=== PATIENT | female | born 1965 ===

== ENCOUNTER 2017-07-21 20:31 | Emergency (ER) | payer OTHER ==
[2017-07-21] MEDS ORDERED: Promethazine/Cod 6.25mg-10mg/5ml Syr UD PO STA (21:06)
--- NOTE | 2017-07-21 21:15 | ED PDOC ---
HPI: CCC, URI, Sore Throat Time Seen by Provider: 07/21/17 20:46 Chief Complaint (Nursing): Cough, Cold, Congestion Chief Complaint (Provider): Cough and Bilateral Chest Pain History Per: Patient History/Exam Limitations: no limitations Have you had recent travel within the past 21 days to any of the following countries: [place], [place], [place] or [place]?: No Onset/Duration Of Symptoms: Days (x7) Current Symptoms Are (Timing): Still Present Location Of Pain: None Sick Contacts (Context): None Associated Symptoms: Cough, Sputum (yellow then green). denies: Fever Ear Symptoms: Bilateral: None Additional Complaint(s): 52 year old female presents to the ED complaining of a progressively worsening cough and bilateral chest pain. The patient reports that initially her cough was productive of yellow sputum they eventually changed to green. She states that she has been using over the counter cough and cold medication which have offered her no relief. Denies hemoptysis, recent travel, sick contacts. PMD: [facility] Past Medical History Reviewed: Historical Data, Nursing Documentation, Vital Signs Vital Signs: Last Vital Signs Temp 98.8 F 07/22/17 00:04 Pulse 78 07/22/17 00:04 Resp 15 07/22/17 00:04 BP 153/91 H 07/22/17 00:04 Pulse Ox 96 07/22/17 00:04 - Medical History PMH: Anxiety, CHF, HTN Denies: Asthma, Chronic Kidney Disease - Surgical History Surgical History: Tonsillectomy - Family History Family History: States: Diabetes Denies: CAD, Hypertension - Immunization History Hx Tetanus Toxoid Vaccination: No Hx Influenza Vaccination: No Hx Pneumococcal Vaccination: No - Home Medications Home Medications: Ambulatory Orders Medication Instructions Recorded Albuterol 0.083% [Albuterol 0.083% 3 ml IH Q6H PRN #30 neb 08/16/15 Inhal Maggie (2.5 mg/3 ml) UD] Nebulizer [Compact Compressor 1 dev XX PRN PRN #1 dev 08/16/15 Nebulizer] Atorvastatin [Lipitor] 20 mg PO DAILY tab 07/18/16 Carvedilol [Coreg] 6.25 mg PO Q12H tab 07/18/16 Furosemide [Lasix] 40 mg PO DAILY tab 07/18/16 Gabapentin [Neurontin] 300 mg PO TID cap 07/18/16 Ibuprofen [Motrin Tab] 600 mg PO Q6 PRN #14 tab 07/18/16 Losartan [Cozaar] 50 mg PO DAILY tab 07/18/16 Spironolactone [Aldactone] 25 mg PO DAILY tab 07/18/16 busPIRone [Buspar] 15 mg PO TID tab 07/18/16 traMADol [Ultram] 50 mg PO Q6 PRN #14 tab 07/18/16 Acetaminophen [Tylenol 325mg tab] 975 mg PO Q4 PRN #30 tab 07/22/17 Albuterol HFA [Ventolin HFA 90 2 puff IH [id number] PRN #90 puff 07/22/17 mcg/actuation (8 g)] Azithromycin [Zithromax] 250 mg PO DAILY #6 tab 07/22/17 Benzonatate [Tessalon Perle] 100 mg PO Q8 PRN #30 capsule 07/22/17 Erythromycin 0.5% [Erythromycin 3.5 gm EACHEYE QID #3 tube 07/22/17 0.5% Oint] - Allergies Allergies/Adverse Reactions: Allergies Allergy/AdvReac Type Severity Reaction Status Date / Time sulfamethoxazole Allergy ANAPHYLAXIS Verified 07/18/16 01:20 Review of Systems Constitutional: Negative for: Fever Cardiovascular: Positive for: Chest Pain (b/l) Respiratory: Positive for: Cough (productive of green sputum). Negative for: Hemoptysis Physical Exam - Reviewed Nursing Documentation Reviewed: Yes Vital Signs Reviewed: Yes - Physical Exam Appears: Positive for: Non-toxic, No Acute Distress Head Exam: Positive for: ATRAUMATIC, NORMAL INSPECTION, NORMOCEPHALIC Skin: Positive for: Normal Color, Warm, Dry. Negative for: Rash Eye Exam: Positive for: Normal appearance, EOMI, PERRL, Conjunctival injection ( b/l injection with white/yellow discharge noted). Negative for: Periorbital swelling, Periorbital tenderness ENT: Positive for: Normal ENT Inspection. Negative for: Nasal Congestion, Tonsillar Exudate, Tonsillar Swelling Cardiovascular/Chest: Positive for: Regular Rate, Rhythm, Chest Non Tender. Negative for: Tachycardia Respiratory: Positive for: Normal Breath Sounds (Patient is actively coughing). Negative for: Wheezing, Respiratory Distress Gastrointestinal/Abdominal: Positive for: Normal Exam, Bowel Sounds, Soft. Negative for: Tenderness, Guarding, Rebound Back: Positive for: Normal Inspection. Negative for: L CVA Tenderness, R CVA Tenderness Extremity: Positive for: Normal ROM. Negative for: Tenderness, Calf Tenderness , Deformity, Swelling Neurologic/Psych: Positive for: Alert, Oriented, Gait - Laboratory Results Result Diagrams: 07/21/17 21:40 07/21/17 21:40 - ECG ECG: Positive for: Interpreted By Me ECG Rhythm: Positive for: Sinus Tachycardia. Negative for: ST/T Changes Rate: 100 O2 Sat by Pulse Oximetry: 98 (RA) Pulse Ox Interpretation: Normal - Radiology X-Ray: Interpreted by Me (CXR) X-Ray Interpretation: No Acute Disease - Progress ED Course And Treament: CTA chest w/ IV contrast: nothing acute Re-evaluation Time: 00:00 Condition: Re-examined, Improving,but remains with symptoms Medical Decision Making Medical Decision Makin Initial Impression 52 y/o female presenting with cough Initial Plan: * VBG * CT Angio Chest PE Protocol * EKG * B-type * Natriuretic * CMP * Troponin * CBC * D-Dimer * CXR (PA&LAT) * Phernegan/Codeine oral syrup * Reevaluation Documented by Aleshia Kim acting as a scribe for Gurvinder De La Cruz PA-C. All medical record entries made by the Scribe were at my direction and personally dictated by me. I have reviewed the chart and agree that the record accurately reflects my personal performance of the history, physical exam, medical decision making, and the department course for this patient. I have also personally directed, reviewed, and agree with the discharge instructions and disposition. Disposition - Clinical Impression Clinical Impression: Acute bronchitis, Conjunctivitis - Patient ED Disposition Is Patient to be Admitted: No - Disposition Referrals: [facility] [Outside] Disposition: Routine/Home Disposition Time: 00:01 Condition: STABLE Prescriptions: Albuterol HFA [Ventolin HFA 90 mcg/actuation (8 g)] 2 puff IH [id number] PRN #90 puff PRN Reason: Cough Acetaminophen [Tylenol 325mg tab] 975 mg PO Q4 PRN #30 tab PRN Reason: fever or pain Azithromycin [Zithromax] 250 mg PO DAILY #6 tab Benzonatate [Tessalon Perle] 100 mg PO Q8 PRN #30 capsule PRN Reason: Cough Erythromycin 0.5% [Erythromycin 0.5% Oint] 3.5 gm EACHEYE QID #3 tube Instructions: Acute Bronchitis (ED), Conjunctivitis (ED) Forms: [employer] (Sinhala) Print Language: IRISH
[2017-07-21] MEDS ORDERED: Promethazine/Cod 6.25mg-10mg/5ml Syr UD ONE (21:25)
[2017-07-21 21:57] LABS: BASO # 0.1 K/uL (0.0-0.2); BASO % 0.8 % (0.0-2.0); EOS # 0.2 K/uL (0.0-0.7); EOS % 1.7 % (0.0-4.0); HEMOGLOBIN 13.5 g/dL (12.0-16.0); LYMPH # 2.2 K/uL (1.0-4.3); LYMPH % 21.4 % (20.0-40.0); MEAN CELL VOLUME 85.7 fl (81.0-99.0); MEAN CORPUSCULAR HEMOGLOBIN 28.4 pg (27.0-31.0); MEAN CORPUSCULAR HGB CONC 33.1 g/dL (33.0-37.0); MEAN PLATELET VOLUME 8.2 fl (7.2-11.7); MONO % 9.9 % (0.0-10.0); NEUT # 6.8 K/uL (1.8-7.0); NEUT % 66.2 % (50.0-75.0); NRBC % 0.1 % (0.0-0.0); RBC 4.76 Mil/uL (3.80-5.20); RED CELL DISTRIBUTION WIDTH 13.8 % (11.5-14.5); WHITE BLOOD COUNT 10.2 K/uL (4.8-10.8)
[2017-07-21 22:07] LABS: VENOUS BLOOD GAS BASE EXCESS 2.6 mmol/L (0.0-2.0); VENOUS BLOOD GAS PCO2 41 mmHg (40-60); VENOUS BLOOD GAS PO2 43 mm/Hg (30-55); VENOUS BLOOD PH 7.43 (7.32-7.43)
[2017-07-21 22:20] LABS: B-TYPE NATRIURETIC PEPTIDE 91.9 pg/ml (0-900)
[2017-07-21 22:21] LABS: ALB/GLOB RATIO 1.1 (1.0-2.1); ALT/SGPT 44 U/L (9-52); AST/SGOT 27 U/L (14-36); BLOOD UREA NITROGEN 13 mg/dl (7-17); CALCIUM 9.6 mg/dL (8.4-10.2); GFR AFRICAN-AMERICAN > 60; GFR NON-AFRICAN AMERICAN > 60
[2017-07-21] MEDS ORDERED: Iodixanol 320 MG/ML 100 ML BOTTLE IV ONE (22:32)
[2017-07-22 00:05] VITALS: BP 153/91; RESP 15; TEMP 98.8
[2017-07-22 00:08] VITALS: PULSE 100; O2SAT 98
--- NOTE | 2017-07-22 08:59 | RAD ---
HISTORY: cough COMPARISON: No prior. TECHNIQUE: Chest PA and lateral FINDINGS: LUNGS: No focal consolidation. Increased/ coarsened interstitial markings ; rule out sequela of reactive/ inflammatory airway disease or viral illness. PLEURA: No significant pleural effusion identified. No pneumothorax apparent. CARDIOVASCULAR: Normal. OSSEOUS STRUCTURES: No significant abnormalities. VISUALIZED UPPER ABDOMEN: Normal. OTHER FINDINGS: None. IMPRESSION: No focal consolidation. Increased/ coarsened interstitial markings ; rule out sequela of reactive/ inflammatory airway disease or viral illness.
--- NOTE | 2017-07-22 10:24 | CT ---
PROCEDURE: CTA of the chest dated 07/21/2017. HISTORY: Bilateral chest pain, SOB COMPARISON: No prior study available comparison however correlation made with CT scan abdomen pelvis 03/14/2017 which imaged both lung bases. TECHNIQUE: Axial computed tomography images were obtained of the chest in the pulmonary arterial phase of enhancement. Coronal and sagittal reformatted images were created and reviewed. Intravenous contrast dose: 99 cc Visipaque 320 contrast Radiation dose: Total exam DLP = 361.33 mGy-cm. This CT exam was performed using one or more of the following dose reduction techniques: Automated exposure control, adjustment of the mA and/or kV according to patient size, and/or use of iterative reconstruction technique. FINDINGS: PULMONARY ARTERIES: Unremarkable. No pulmonary embolism. Pulmonary trunk measures approximately 2.75 cm. AORTA: No acute findings. No thoracic aortic aneurysm. Ascending thoracic aorta measures approximately 3.64 cm and descending thoracic aorta measures approximately 2.36 cm. LUNGS: Linear/nodular atelectasis and or scarring changes again seen in the middle lobe and lingular regions. Lung gore are otherwise clear. Small hiatal hernia with wall thickening of the distal esophagus likely due to protrusion gastric mucosa. Possibility of esophagitis or other intrinsic/invasive wall lesion not excluded. PLEURAL SPACES: Unremarkable. No effusion or pneumothorax. HEART: Heart appears mildly enlarged. No significant pericardial effusion. LYMPH NODES: Few small nonspecific mediastinal lymph nodes. No significant hilar adenopathy. BONES, CHEST WALL: Mild multilevel degenerative spondylosis of the thoracic spine. There are no compression fractures no retropulsed fragments. Vertebral bodies exhibit relatively normal stature. OTHER FINDINGS: Unremarkable. IMPRESSION: No evidence of acute central pulmonary embolus. Re- demonstrated are mild chronic linear/nodular atelectasis and or scarring changes middle lobe and lingular regions. Small hiatal hernia with wall thickening of the distal esophagus likely due to protrusion gastric mucosa. Possibility of esophagitis or other intrinsic/invasive wall lesion not excluded.
--- NOTE | 2017-07-22 12:22 | CARD ---
APPROVED REPORT EKG Measurement Heart [id number] <Conclusion> Normal sinus rhythm Nonspecific ST abnormality Abnormal ECG
== END 2017-07-22 00:09 | disposition home or self-care (01) ==
LOC: H.ER 20:31
DX: J20.9 Acute bronchitis, unspecified (principal); H10.9 Unspecified conjunctivitis; I50.9 Heart failure, unspecified; I10 Essential (primary) hypertension
CPT/HCPCS: 71046; 71275; 80053; 82803; 83880; 84484; 85025; 93005; 99284; Q9967

== ENCOUNTER 2018-02-14 10:33 | Emergency (ER) | payer MEDICAID, OTHER ==
[2018-02-14 10:37] VITALS: O2SAT 98
[2018-02-14 10:38] VITALS: BMI 32.4
[2018-02-14 12:06] LABS: BASO # 0.1 K/uL (0.0-0.2); BASO % 0.7 % (0.0-2.0); EOS # 0.2 K/uL (0.0-0.7); EOS % 3.1 % (0.0-4.0); HEMOGLOBIN 14.8 g/dL (12.0-16.0); LYMPH # 2.2 K/uL (1.0-4.3); LYMPH % 28.7 % (20.0-40.0); MEAN CELL VOLUME 86.7 fl (81.0-99.0); MEAN CORPUSCULAR HEMOGLOBIN 28.9 pg (27.0-31.0); MEAN CORPUSCULAR HGB CONC 33.3 g/dL (33.0-37.0); MEAN PLATELET VOLUME 8.6 fl (7.2-11.7); MONO # 0.7 K/uL (0.0-0.8); MONO % 8.9 % (0.0-10.0); NEUT # 4.4 K/uL (1.8-7.0); NEUT % 58.6 % (50.0-75.0); NRBC % 0.1 % (0.0-0.0); RBC 5.13 Mil/uL (3.80-5.20); RED CELL DISTRIBUTION WIDTH 13.7 % (11.5-14.5); WHITE BLOOD COUNT 7.6 K/uL (4.8-10.8)
[2018-02-14 12:14] LABS: PROTHROMBIN TIME 11.5 Seconds (9.8-13.1)
[2018-02-14 12:16] LABS: ALB/GLOB RATIO 1.3 (1.0-2.1); ALT/SGPT 29 U/L (9-52); AST/SGOT 24 U/L (14-36); BLOOD UREA NITROGEN 14 mg/dl (7-17); CALCIUM 9.2 mg/dL (8.4-10.2); GFR NON-AFRICAN AMERICAN > 60
[2018-02-14 12:17] LABS: PARTIAL THROMBOPLASTIN TIME 31.2 Seconds (25.6-37.1)
--- NOTE | 2018-02-14 12:24 | RAD ---
Date of service: 02/14/2018 PROCEDURE: Cervical Spine Radiographs. HISTORY: Pain. COMPARISON: None. FINDINGS: BONES: Note that the odontoid is partially obscured by overlying occiput the open-mouth projection although also partially seen in extended karimi view No acute displaced - compression fractures nor retropulsed fragments. . Vertebral bodies exhibit relatively normal stature. There is slight posterior subluxation C5 over C6. There is also mild straightening of the normal cervical lordosis. Vertebral bodies otherwise exhibit normal alignment. Facets normally aligned DISC SPACES: Multilevel degenerative spondylosis. Changes include mild disc space narrowing with anterior as well as posterior osteophyte formation most notably affecting the C5-C6 level. Hypertrophic uncovertebral facet joint changes are also present latter more significant than former. Bilateral foraminal stenosis noted at the C3-C4, C4-C5 left greater than right and C5-C6 the bilaterally left greater than right SOFT TISSUES: Normal. No prevertebral soft tissue swelling. OTHER FINDINGS: None. IMPRESSION: No acute fractures seen within limitation of the study . Multilevel degenerative spondylosis as described.
[2018-02-14 13:09] LABS: VENOUS BLOOD GAS BASE EXCESS 2.4 mmol/L (0.0-2.0); VENOUS BLOOD GAS PCO2 51 mmHg (40-60); VENOUS BLOOD GAS PO2 25 mm/Hg (30-55); VENOUS BLOOD PH 7.36 (7.32-7.43)
--- NOTE | 2018-02-14 14:29 | ED PDOC ---
Upper Extremity Pain/Injury Time Seen by Provider: 02/14/18 10:42 Chief Complaint (Nursing): Upper Extremity Problem/Injury Chief Complaint (Provider): Upper Extremity Problem/Injury History Per: Patient History/Exam Limitations: no limitations Onset/Duration Of Symptoms: Sudden Onset Additional Complaint(s): 52 years old female presents to the ED for evaluation of sudden onset of left sided neck pain radiates to left arm and left chest. Patient reports symptoms appeared while she was taking out trash and states that after onset she became sweaty and dizzy and had to lay down. She states pain persisted which made her come to the ED. Patient denies any shortness of breath, loss of consciousness, nausea, vomiting or experiencing symptoms in the past. PMD: Dr. Gentile Past Medical History Reviewed: Historical Data, Nursing Documentation, Vital Signs Vital Signs: Last Vital Signs Temp 98.8 F 02/14/18 10:36 Pulse 87 02/14/18 10:36 Resp 20 02/14/18 10:36 BP 145/90 02/14/18 10:36 Pulse Ox 98 02/14/18 10:36 - Medical History PMH: Anxiety, CHF, HTN Denies: Asthma, Chronic Kidney Disease - Surgical History Surgical History: Tonsillectomy - Family History Family History: States: Diabetes Denies: CAD, Hypertension - Social History Current smoker - smoking cessation education provided: No Alcohol: None Drugs: Denies - Immunization History Hx Tetanus Toxoid Vaccination: No Hx Influenza Vaccination: No Hx Pneumococcal Vaccination: No - Home Medications Home Medications: Ambulatory Orders Medication Instructions Recorded Albuterol 0.083% [Albuterol 0.083% 3 ml IH Q6H PRN #30 neb 08/16/15 Inhal Maggie (2.5 mg/3 ml) UD] Nebulizer [Compact Compressor 1 dev XX PRN PRN #1 dev 08/16/15 Nebulizer] Atorvastatin [Lipitor] 20 mg PO DAILY tab 07/18/16 Carvedilol [Coreg] 6.25 mg PO Q12H tab 07/18/16 Furosemide [Lasix] 40 mg PO DAILY tab 07/18/16 Gabapentin [Neurontin] 300 mg PO TID cap 07/18/16 Ibuprofen [Motrin Tab] 600 mg PO Q6 PRN #14 tab 07/18/16 Losartan [Cozaar] 50 mg PO DAILY tab 07/18/16 Spironolactone [Aldactone] 25 mg PO DAILY tab 07/18/16 busPIRone [Buspar] 15 mg PO TID tab 07/18/16 traMADol [Ultram] 50 mg PO Q6 PRN #14 tab 07/18/16 Acetaminophen [Tylenol 325mg tab] 975 mg PO Q4 PRN #30 tab 07/22/17 Albuterol HFA [Ventolin HFA 90 2 puff IH [id number] PRN #90 puff 07/22/17 mcg/actuation (8 g)] Azithromycin [Zithromax] 250 mg PO DAILY #6 tab 07/22/17 Benzonatate [Tessalon Perle] 100 mg PO Q8 PRN #30 capsule 07/22/17 Erythromycin 0.5% [Erythromycin 3.5 gm EACHEYE QID #3 tube 07/22/17 0.5% Oint] Cyclobenzaprine [Flexeril] 5 mg PO BID PRN #10 tab 02/14/18 Ibuprofen [Motrin] 600 mg PO Q8 PRN #21 tab 02/14/18 - Allergies Allergies/Adverse Reactions: Allergies Allergy/AdvReac Type Severity Reaction Status Date / Time sulfamethoxazole Allergy ANAPHYLAXIS Verified 02/14/18 10:44 Review of Systems ROS Statement: Except As Marked, All Systems Reviewed And Found Negative Cardiovascular: Positive for: Chest Pain (left sided) Respiratory: Negative for: Shortness of Breath Gastrointestinal: Negative for: Nausea, Vomiting Musculoskeletal: Positive for: Arm Pain (left sided) Physical Exam - Reviewed Nursing Documentation Reviewed: Yes Vital Signs Reviewed: Yes - Physical Exam Appears: Positive for: Non-toxic, No Acute Distress Head Exam: Positive for: ATRAUMATIC, NORMOCEPHALIC Cardiovascular/Chest: Positive for: Regular Rate, Rhythm. Negative for: Murmur Respiratory: Positive for: Normal Breath Sounds. Negative for: Wheezing, Respiratory Distress Gastrointestinal/Abdominal: Positive for: Normal Exam, Soft. Negative for: Tenderness Back: Positive for: Normal Inspection Extremity: Positive for: Normal ROM. Negative for: Tenderness, Swelling Neurologic/Psych: Positive for: Alert, Oriented (x3) - Laboratory Results Result Diagrams: 02/14/18 11:53 02/14/18 11:53 - ECG O2 Sat by Pulse Oximetry: 98 (RA) Pulse Ox Interpretation: Normal Medical Decision Making Medical Decision Makin --Workup for cardiac etiology, loss suspicion cased on no risk factory --Workup for musculoskeletal pain --Venous Blood Gas --EKG --CMP --Troponin I --CBC --PTT/PT --Cervical Spine Complete X-Ray --Chest X-Ray --Forearm AP 2 Views --Hand 3 Views --Flexeril 10 mg PO --Morphine 2 mg IVP --Toradol 30 mg IVP --Zofran 4 mg IVP 1222 Cervical spine X-Ray FINDINGS: BONES: Note that the odontoid is partially obscured by overlying occiput the open- mouth projection although also partially seen in extended karimi view No acute displaced - compression fractures nor retropulsed fragments. . Vertebral bodies exhibit relatively normal stature. There is slight posterior subluxation C5 over C6. There is also mild straightening of the normal cervical lordosis. Vertebral bodies otherwise exhibit normal alignment. Facets normally aligned DISC SPACES: Multilevel degenerative spondylosis. Changes include mild disc space narrowing with anterior as well as posterior osteophyte formation most notably affecting the C5-C6 level. Hypertrophic uncovertebral facet joint changes are also present latter more significant than former. Bilateral foraminal stenosis noted at the C3-C4, C4-C5 left greater than right and C5-C6 the bilaterally left greater than right SOFT TISSUES: Normal. No prevertebral soft tissue swelling. OTHER FINDINGS: None. IMPRESSION: No acute fractures seen within limitation of the study . Multilevel degenerative spondylosis as described. 1533 Chest X-Ray FINDINGS: LUNGS: Mild bibasilar atelectasis. No focal consolidation. Please note that chest x-ray has limited sensitivity for the detection of pulmonary masses. PLEURA: No significant pleural effusion identified. No definite pneumothorax . CARDIOVASCULAR: Heart size appears top normal. Atherosclerotic calcifications of the aorta. OSSEOUS STRUCTURES: Degenerative changes. Mild scoliosis convex to the right. VISUALIZED UPPER ABDOMEN: Unremarkable. OTHER FINDINGS: None. IMPRESSION: Mild bibasilar atelectasis. Pt with continued pain with toradol, morphine, flexeril, and zofran. Wet read of hand xrays shows possible fracture to capitae and requesting official read by radiologist. CT of neck shows degenerative spondylosis. Pt updated on status. 1608 Hand X-Ray FINDINGS: BONES: No acute displaced fracture. JOINTS: No dislocation. SOFT TISSUES: Unremarkable. No evidence of radiopaque foreign body. OTHER FINDINGS: None. IMPRESSION: No acute displaced fracture, dislocation, or significant joint effusion identified. If symptoms persist, or if there is continued clinical concern, x-ray follow-up in 7-10 days should be considered. 1610 Forearm X-Ray FINDINGS: BONES: No acute displaced fracture. JOINTS: No dislocation. SOFT TISSUES: Soft tissue swelling. No evidence of radiopaque foreign body. JOINT EFFUSION: No significant joint effusion. OTHER FINDINGS: None IMPRESSION: Soft tissue swelling. No acute displaced fracture, dislocation, or significant joint effusion identified. If symptoms persist, or if there is continued clinical concern, x-ray follow-up in 7-10 days should be considered. 1707 Re-eval Patient pending splint for left arm pain. XR findings shows no acute injury with all results relayed to patient. Advised to follow up with neurologist for carpal tunnel syndrome. Referred patient to hand surgeon, discharged with Rx for Flexeril and Motrin for radicular neuropathy. There is agreement to discharge plan. Return if symptoms persist or worsen. Scribe Attestation: Documented by Delmy Fletcher and Mallorie Winter, acting as scribes for Kimberlee Gillis MD. Provider Scribe Attestation: All medical record entries made by the Scribe were at my direction and personally dictated by me. I have reviewed the chart and agree that the record accurately reflects my personal performance of the history, physical exam, medical decision making, and the department course for this patient. I have also personally directed, reviewed, and agree with the discharge instructions and disposition. Disposition - Clinical Impression Clinical Impression: Carpal tunnel syndrome, Hand pain, left, Radicular neuropathy - Patient ED Disposition Is Patient to be Admitted: No Counseled Patient/Family Regarding: Studies Performed, Diagnosis, Need For Followup, Rx Given - Disposition Referrals: Svetlana Weber MD [Staff Provider] - Disposition: Routine/Home Disposition Time: 17:07 Condition: IMPROVED Additional Instructions: Follow up with the hand specialist in 2 to 5 days regarding pain to the left hand. Your xrays today did not show any broken or dislocated bones. There may be other injuries to the hand which are not detected on xray which is why you will follow up with the hand specialist in 2 to 5 days. Follow up with your primary doctors as this may also be a complication of carpal tunnel syndrom. The xrays of your neck show degenerative changes which can cause radiculopathy ( pain radiating from neck down the arms). Please follow up with your primary doctors regarding this. You have been prescribed Naproxen for pain and inflammation. You are also prescribed a muscle relaxant. Do not take the muscle relaxant if you are driving a car, operating machinery, or performing dangerous tasks as it may make you dizzy. Return to the emergency department if pain, swelling, or numbness occur. Prescriptions: Cyclobenzaprine [Flexeril] 5 mg PO BID PRN #10 tab PRN Reason: Pain, Moderate (4-7) Ibuprofen [Motrin] 600 mg PO Q8 PRN #21 tab PRN Reason: Pain, Moderate (4-7) Forms: [facility] (Khmer)
--- NOTE | 2018-02-14 14:58 | CARD ---
APPROVED REPORT Date of service: 02/14/2018 <Conclusion> Sinus bradycardia Nonspecific T wave abnormality Abnormal ECG
--- NOTE | 2018-02-14 15:34 | RAD ---
HISTORY: possible admission COMPARISON: Chest x-ray performed 07/21/17 TECHNIQUE: Chest, one view. FINDINGS: LUNGS: Mild bibasilar atelectasis. No focal consolidation. Please note that chest x-ray has limited sensitivity for the detection of pulmonary masses. PLEURA: No significant pleural effusion identified. No definite pneumothorax . CARDIOVASCULAR: Heart size appears top normal. Atherosclerotic calcifications of the aorta. OSSEOUS STRUCTURES: Degenerative changes. Mild scoliosis convex to the right. VISUALIZED UPPER ABDOMEN: Unremarkable. OTHER FINDINGS: None. IMPRESSION: Mild bibasilar atelectasis.
--- NOTE | 2018-02-14 16:09 | RAD ---
PROCEDURE: Left Hand Radiographs. HISTORY: left hand pain COMPARISON: None available. FINDINGS: BONES: No acute displaced fracture. JOINTS: No dislocation. SOFT TISSUES: Unremarkable. No evidence of radiopaque foreign body. OTHER FINDINGS: None. IMPRESSION: No acute displaced fracture, dislocation, or significant joint effusion identified. If symptoms persist, or if there is continued clinical concern, x-ray follow-up in 7-10 days should be considered.
--- NOTE | 2018-02-14 16:12 | RAD ---
PROCEDURE: Radiographs of the left elbow. HISTORY: left forearm COMPARISON: None available. FINDINGS: BONES: No acute displaced fracture. JOINTS: No dislocation. SOFT TISSUES: Soft tissue swelling. No evidence of radiopaque foreign body. JOINT EFFUSION: No significant joint effusion. OTHER FINDINGS: None IMPRESSION: Soft tissue swelling. No acute displaced fracture, dislocation, or significant joint effusion identified. If symptoms persist, or if there is continued clinical concern, x-ray follow-up in 7-10 days should be considered.
[2018-02-14 17:31] VITALS: BP 151/77; PULSE 69; RESP 19; TEMP 98.1
== END 2018-02-14 17:31 | disposition home or self-care (01) ==
LOC: H.ER 10:33
DX: G56.02 Carpal tunnel syndrome, left upper limb (principal); M54.10 Radiculopathy, site unspecified; M79.602 Pain in left arm; G62.9 Polyneuropathy, unspecified; I11.0 Hypertensive heart disease with heart failure; I50.9 Heart failure, unspecified; Z88.2 Allergy status to sulfonamides
CPT/HCPCS: 71045; 72052; 73090; 73130; 80053; 82803; 84484; 85025; 85610; 85730; 93005; 96374; 96375; 99284; J1885; J2270; J2405

== ENCOUNTER 2018-09-17 12:13 | Emergency (ER) | payer OTHER ==
[2018-09-17 12:14] VITALS: BMI 32.4
[2018-09-17 12:37] VITALS: TEMP 98.2
--- NOTE | 2018-09-17 13:54 | ED PDOC ---
HPI: General Adult Time Seen by Provider: 09/17/18 13:19 Chief Complaint (Nursing): Shortness Of Breath Chief Complaint (Provider): Back Pain History Per: Patient History/Exam Limitations: no limitations Onset/Duration Of Symptoms: Days Current Symptoms Are (Timing): Still Present Additional Complaint(s): 53 year old female with a past medical history of CHF, hypertension, and anxiety who is presenting to the ED for evaluation of left sided upper back pain radiating from the shoulder and down her left arm worsening for 4 weeks. Patient states that pain is worse with movement and states that she has been using hot compresses. She reports that she has been using Ibuprofen for pain with no relief of symptoms. Patient also admits thats he has been having pain to left breast area and armpit. Contrary to triage note, patient is not complaining of shortness of breath. Of note, patient states that she was referred to the ED by Clinic. PMD: clinic Past Medical History Reviewed: Historical Data, Nursing Documentation, Vital Signs Vital Signs: Last Vital Signs Temp 98.2 F 09/17/18 12:36 Pulse 96 H 09/17/18 12:36 Resp 16 09/17/18 12:36 BP 165/110 H 09/17/18 12:36 Pulse Ox 96 09/17/18 12:36 - Medical History PMH: Anxiety, CHF, HTN Denies: Asthma, Chronic Kidney Disease - Surgical History Surgical History: Tonsillectomy - Family History Family History: States: Diabetes Denies: CAD, Hypertension - Social History Current smoker - smoking cessation education provided: No Alcohol: None Drugs: Denies - Immunization History Hx Tetanus Toxoid Vaccination: No Hx Influenza Vaccination: No Hx Pneumococcal Vaccination: No - Home Medications Home Medications: Ambulatory Orders Medication Instructions Recorded Albuterol 0.083% [Albuterol 0.083% 3 ml IH Q6H PRN #30 neb 08/16/15 Inhal Maggie (2.5 mg/3 ml) UD] Nebulizer [Compact Compressor 1 dev XX PRN PRN #1 dev 08/16/15 Nebulizer] Atorvastatin [Lipitor] 20 mg PO DAILY tab 07/18/16 Carvedilol [Coreg] 6.25 mg PO Q12H tab 07/18/16 Furosemide [Lasix] 40 mg PO DAILY tab 07/18/16 Gabapentin [Neurontin] 300 mg PO TID cap 07/18/16 Ibuprofen [Motrin Tab] 600 mg PO Q6 PRN #14 tab 07/18/16 Losartan [Cozaar] 50 mg PO DAILY tab 07/18/16 Spironolactone [Aldactone] 25 mg PO DAILY tab 07/18/16 busPIRone [Buspar] 15 mg PO TID tab 07/18/16 traMADol [Ultram] 50 mg PO Q6 PRN #14 tab 07/18/16 Acetaminophen [Tylenol 325mg tab] 975 mg PO Q4 PRN #30 tab 07/22/17 Albuterol HFA [Ventolin HFA 90 2 puff IH [id number] PRN #90 puff 07/22/17 mcg/actuation (8 g)] Azithromycin [Zithromax] 250 mg PO DAILY #6 tab 07/22/17 Benzonatate [Tessalon Perle] 100 mg PO Q8 PRN #30 capsule 07/22/17 Erythromycin 0.5% [Erythromycin 3.5 gm EACHEYE QID #3 tube 07/22/17 0.5% Oint] Cyclobenzaprine [Flexeril] 5 mg PO BID PRN #10 tab 02/14/18 Ibuprofen [Motrin] 600 mg PO Q8 PRN #21 tab 02/14/18 Lidocaine 5% [Lidoderm] 1 ea TD DAILY PRN #10 patch 09/17/18 - Allergies Allergies/Adverse Reactions: Allergies Allergy/AdvReac Type Severity Reaction Status Date / Time sulfamethoxazole Allergy ANAPHYLAXIS Verified 02/14/18 10:44 Review of Systems ROS Statement: Except As Marked, All Systems Reviewed And Found Negative Cardiovascular: Positive for: Chest Pain Respiratory: Negative for: Shortness of Breath Musculoskeletal: Positive for: Shoulder Pain, Back Pain Physical Exam - Reviewed Nursing Documentation Reviewed: Yes Vital Signs Reviewed: Yes - Physical Exam Appears: Positive for: Non-toxic, No Acute Distress Head Exam: Positive for: ATRAUMATIC, NORMAL INSPECTION, NORMOCEPHALIC Skin: Positive for: Normal Color, Warm Eye Exam: Positive for: EOMI, Normal appearance, PERRL Neck: Positive for: Normal, Painless ROM Cardiovascular/Chest: Positive for: Regular Rate, Rhythm. Negative for: Murmur Respiratory: Positive for: Normal Breath Sounds. Negative for: Respiratory Distress Gastrointestinal/Abdominal: Positive for: Normal Exam, Soft. Negative for: Tenderness Back: Positive for: Other (left upper back tenderness and lateral to left breast tenderness, but with full ROM at shoulder ) - ECG O2 Sat by Pulse Oximetry: 96 (RA) Pulse Ox Interpretation: Normal Medical Decision Making Medical Decision Making: Time: 13:48 Plan: --EKG --CXR --Flexeril 10 mg PO --Toradol 30 mg IM Accession No. : [id number] Patient Name / ID : TRE ELDER / [id number] Exam Date : 09/17/2018 13:45:07 ( Approved ) Study Comment : Sex / Age : F / 53Y Creator : Mauro Oliveira MD Dictator : Mauro Oliveira MD Fuel Cell Binder : Catalytic Converter Operator Helper : Mauro Oliveira MD Approver2 : Report Date : 09/17/2018 14:53:43 My Comment : Date of service: 09/17/2018 HISTORY: Back pain COMPARISON: 02/14/2018. TECHNIQUE: Chest PA and lateral views FINDINGS: LUNGS: No active pulmonary disease. PLEURA: No significant pleural effusion identified. No pneumothorax apparent. CARDIOVASCULAR: No aortic atherosclerotic calcification present. Normal cardiac size. No pulmonary vascular congestion. OSSEOUS STRUCTURES: No significant abnormalities. VISUALIZED UPPER ABDOMEN: Normal. OTHER FINDINGS: None. IMPRESSION: No active disease. No significant interval change compared to the prior examination(s). Scribe Attestation: Documented by Vi Schneider, acting as a scribe for Yeimi Lehman MD. Provider Scribe Attestation: All medical record entries made by the Scribe were at my direction and personally dictated by me. I have reviewed the chart and agree that the record accurately reflects my personal performance of the history, physical exam, medical decision making, and the department course for this patient. I have also personally directed, reviewed, and agree with the discharge instructions and disposition. Disposition - Clinical Impression Clinical Impression: Back pain - Disposition Referrals: [facility] [Outside] Disposition: Routine/Home Disposition Time: 16:30 Condition: STABLE Prescriptions: Lidocaine 5% [Lidoderm] 1 ea TD DAILY PRN #10 patch PRN Reason: Pain, Moderate (4-7) Instructions: Upper Back Pain Forms: [facility] (Turkish)
--- NOTE | 2018-09-17 14:57 | RAD ---
Date of service: 09/17/2018 HISTORY: Back pain COMPARISON: 02/14/2018. TECHNIQUE: Chest PA and lateral views FINDINGS: LUNGS: No active pulmonary disease. PLEURA: No significant pleural effusion identified. No pneumothorax apparent. CARDIOVASCULAR: No aortic atherosclerotic calcification present. Normal cardiac size. No pulmonary vascular congestion. OSSEOUS STRUCTURES: No significant abnormalities. VISUALIZED UPPER ABDOMEN: Normal. OTHER FINDINGS: None. IMPRESSION: No active disease. No significant interval change compared to the prior examination(s).
[2018-09-17 17:12] LABS: BASO # 0.1 K/uL (0.0-0.2); EOS # 0.3 K/uL (0.0-0.7); EOS % 3.5 % (0.0-4.0); HEMOGLOBIN 13.9 g/dL (12.0-16.0); LYMPH # 2.5 K/uL (1.0-4.3); LYMPH % 29.2 % (20.0-40.0); MEAN CELL VOLUME 85.4 fl (81.0-99.0); MEAN CORPUSCULAR HEMOGLOBIN 28.3 pg (27.0-31.0); MEAN CORPUSCULAR HGB CONC 33.2 g/dL (33.0-37.0); MEAN PLATELET VOLUME 7.9 fl (7.2-11.7); MONO # 0.6 K/uL (0.0-0.8); MONO % 6.8 % (0.0-10.0); NEUT # 5.1 K/uL (1.8-7.0); NEUT % 59.5 % (50.0-75.0); NRBC % 0.1 % (0.0-0.0); RBC 4.92 Mil/uL (3.80-5.20); RED CELL DISTRIBUTION WIDTH 14.5 % (11.5-14.5); WHITE BLOOD COUNT 8.6 K/uL (4.8-10.8)
[2018-09-17 17:13] VITALS: RESP 18; O2SAT 100
[2018-09-17 17:26] LABS: PROTHROMBIN TIME 11.3 Seconds (9.8-13.1)
[2018-09-17 17:44] LABS: ALB/GLOB RATIO 1.2 (1.0-2.1); ALBUMIN 4.2 g/dL (3.5-5.0); ALT/SGPT 46 U/L (9-52); AST/SGOT 39 U/L (14-36); BLOOD UREA NITROGEN 18 mg/dl (7-17); CALCIUM 9.7 mg/dL (8.4-10.2); GFR NON-AFRICAN AMERICAN > 60
[2018-09-17 17:58] LABS: D DIMER < 200 ng/mlDDU (0-230)
[2018-09-17 19:28] VITALS: BP 140/90; PULSE 88
--- NOTE | 2018-09-17 22:45 | CARD ---
APPROVED REPORT Date of service: 09/17/2018 EKG Measurement Heart [id number] <Conclusion> Normal sinus rhythm Nonspecific ST and T wave abnormality Abnormal ECG
== END 2018-09-17 18:30 | disposition home or self-care (01) ==
LOC: H.ER 12:13
DX: M54.9 Dorsalgia, unspecified (principal); R07.89 Other chest pain
CPT/HCPCS: 71046; 80053; 85025; 85378; 85610; 85730; 93005; 96372; 99284; J1885